=== PATIENT | male | born 1985 | race Caucasian/White ===

== ENCOUNTER 2022-04-04 07:39 | Outpatient (CLI) | payer OTHER, SELFPAY ==
[2022-04-04 13:31] LABS: Albumin* 4.3 g/dL (3.3-5.0)
[2022-04-04 13:32] LABS: Chloride* 105 mmol/L (96-114); Potassium* 4.8 mmol/L (3.6-5.1); Sodium* 139 mmol/L (135-149)
[2022-04-04 13:34] LABS: Aspartate Amino Transferase* 31 U/L (12-35); Bilirubin Total* 0.4 mg/dL (0.1-1.5); Blood Urea Nitrogen* 16 mg/dL (5-24); Carbon Dioxide* 29 mmol/L (20-32); Cholesterol* 154 mg/dL (90-199); Estimated Glomerular Filt Rate 101 ml/min
[2022-04-04 13:35] LABS: Alanine Aminotransferase* 20 U/L (4-50); Alkaline Phosphatase* 70 U/L (40-150); Calcium* 9.7 mg/dL (8.4-10.6); Glucose* 109 mg/dL (60-115); HDL Cholesterol* 62 mg/dL (>=40); LDL Cholesterol Calculated 81 mg/dL (<100); Triglycerides* 56 mg/dL (40-149)
[2022-04-04 14:20] LABS: Hepatitis C Virus Antibody* Negative (Negative)
== END 2022-04-04 07:40 | disposition home or self-care (01) ==
PROVIDERS: PCP Family Medicine; Visit Provider Family Medicine
DX: Z00.00 Encounter for general adult medical examination without abnormal findings (principal); Z13.6 Encounter for screening for cardiovascular disorders; Z11.59 Encounter for screening for other viral diseases
CPT/HCPCS: 80053; 80061; 86803

== ENCOUNTER 2023-04-17 14:13 | Outpatient (CLI) | payer OTHER, SELFPAY | END 2023-04-17 14:14 | disposition home or self-care (01) | PROVIDERS: PCP Family Medicine; Visit Provider Family Medicine | DX: Z00.00 Encounter for general adult medical examination without abnormal findings (principal); I49.9 Cardiac arrhythmia, unspecified; R73.03 Prediabetes; Z13.6 Encounter for screening for cardiovascular disorders | CPT/HCPCS: 80053; 80061 ==

== ENCOUNTER 2023-05-22 13:47 | Outpatient (CLI) | payer OTHER, SELFPAY | END 2023-05-22 13:48 | disposition home or self-care (01) | LOC: RAD 13:48 | PROVIDERS: PCP Family Medicine; Visit Provider Family Medicine | DX: I49.9 Cardiac arrhythmia, unspecified (principal) | CPT/HCPCS: 93306 ==

== ENCOUNTER 2024-04-01 13:00 | Outpatient (CLI) | payer OTHER, SELFPAY | END 2024-04-01 13:01 | disposition home or self-care (01) | PROVIDERS: PCP Family Medicine; Visit Provider Family Medicine | DX: R73.03 Prediabetes (principal); D64.9 Anemia, unspecified; Z13.220 Encounter for screening for lipoid disorders | CPT/HCPCS: 80053; 80061; 83540; 83550 ==

== ENCOUNTER 2024-07-15 07:24 | Outpatient (CLI) | payer OTHER, SELFPAY | END 2024-07-15 07:25 | disposition home or self-care (01) | LOC: NFLDREF 07-22 23:03 | PROVIDERS: PCP Family Medicine; Referring Provider Family Medicine; Visit Provider Family Medicine | DX: R73.03 Prediabetes (principal); D64.9 Anemia, unspecified | CPT/HCPCS: 80053; 83540; 83550 ==

== ENCOUNTER 2025-04-21 12:51 | Outpatient (CLI) | payer OTHER, SELFPAY | END 2025-04-21 12:52 | disposition home or self-care (01) | PROVIDERS: PCP Family Medicine; Visit Provider Family Medicine | DX: Z00.00 Encounter for general adult medical examination without abnormal findings (principal); D64.9 Anemia, unspecified; R73.03 Prediabetes | CPT/HCPCS: 80053; 80061; 82306 ==